=== PATIENT | female | born 1990 | race Asian ===

== ENCOUNTER → 2023-08-02 | Outpatient (CLI) | payer OTHER ==
[2023-08-03 03:06] LABS: MUMPS VIRUS IGG ANTIBODY 23.6 AU/mL (Immune >10.9); RUBELLA AB IGG-REFLAB 1.24 index (Immune >0.99)
[2023-08-03 07:07] LABS: RUBEOLA (MEASLES) IGG 24.1 AU/mL (Immune >16.4)
== END | disposition home or self-care (01) ==
LOC: LABMN 11:13
PROVIDERS: ATTEND Internal Medicine
DX: Z02.1 Encounter for pre-employment examination (principal)
CPT/HCPCS: 86706; 86735; 86762; 86765; 86787